=== PATIENT | male | born 1980 | race Caucasian/White ===

== ENCOUNTER 2024-07-31 00:33 | Emergency (ER) | payer OTHER ==
[~2024-07-31] VITALS: Ht 177.8 cm; Wt 113.4 kg
[2024-07-31] MEDS ORDERED: dexaMETHasone SOD PHOSPHATE 1 ML ONE (00:57)
[2024-07-31] MEDS: dexaMETHasone SOD PHOSPHATE 4 MG/ML VIAL IV ONE (01:00)
[2024-07-31 01:11] LABS: BASOPHILS % (AUTO) 0.5 % (0.0-2.0); EOSINOPHILS # (AUTO) 0.3 K/uL (0.0-0.7); EOSINOPHILS % (AUTO) 2.9 % (0.0-6.0); HEMATOCRIT 41 % (39-51); HEMOGLOBIN 14.1 g/dL (13.5-17.5); LYMPHOCYTES # (AUTO) 1.8 K/uL (0.8-4.8); LYMPHOCYTES % (AUTO) 17.5 % (20.0-44.0); MEAN CORPUSCULAR HEMOGLOBIN 31 PG (26.0-33.0); MEAN CORPUSCULAR HGB CONC 35 g/dl (31.0-36.0); MEAN CORPUSCULAR VOLUME 90 fL (80-96); MONOCYTES # (AUTO) 0.8 K/uL (0.1-1.30); MONOCYTES % (AUTO) 8.2 % (2.0-12.0); NEUTROPHILS # (AUTO) 7.2 K/uL (1.8-8.9); NEUTROPHILS % (AUTO) 70.9 % (43.0-81.0); PLATELET COUNT (AUTO) 201 K/uL (150-450); RED BLOOD CELL COUNT(AUTO) 4.55 MIL/uL (4.5-6.0); RED CELL DISTRIBUTION WIDTH 13.2 % (11.5-15.0); WHITE BLOOD COUNT (AUTO) 10.1 K/uL (4.3-11.0)
[2024-07-31 01:28] LABS: ALBUMIN 3.1 g/dL (3.4-5.0); BILIRUBIN,TOTAL 0.3 mg/dL (0.2-1.0); CALCIUM, SERUM 8.2 mg/dL (8.5-10.1); CREATININE 1.1 mg/dL (0.6-1.3); POTASSIUM 4.1 mmol/L (3.5-5.1); TOTAL PROTEIN, SERUM 6.2 g/dL (6.4-8.2)
[2024-07-31] MEDS ORDERED: IOHEXOL-300 100 ML VIAL IV ONE (01:41)
[2024-07-31] MEDS ORDERED: CT SWABBABLE VALVE TRANS SET 1 EA INFUS.SET MC ONE (01:41)
[2024-07-31] MEDS ORDERED: IV NS 0.9% 250 ML IV ONE (01:42)
[2024-07-31] MEDS ORDERED: KETOROLAC TROMETHAMINE 15 MG/ML VIAL ONE (02:36)
[2024-07-31 02:42] VITALS: BP 135/83; TEMP 98; O2SAT 95
[2024-07-31] MEDS: KETOROLAC TROMETHAMINE 15 MG/ML VIAL IV ONE (02:42)
== END 2024-07-31 02:43 | disposition home or self-care (01) ==
LOC: ER 00:35
DX: J02.9 Acute pharyngitis, unspecified (principal); R13.10 Dysphagia, unspecified; I10 Essential (primary) hypertension; Z20.822 Contact with and (suspected) exposure to COVID-19
CPT/HCPCS: 99285; 96374; 70491; 96375; 87426; 87804 ×2; 85025; 36415; 80053; J1100; J7050; Q9967; J1885